=== PATIENT | female | born 1935 | race Caucasian/White ===

== ENCOUNTER → 2016-04-26 | Outpatient (CLI) | payer MEDICARE, BC ==
[~2016-04-26] MED LIST: CALC600T34; CARV12.5; FURO1TAB93; MAGN400T; MONT10TA2; NISO20TA; POTA-267; PRED-1; PROM6.257; RANI150; SUCR1TAB6; TELM1TAB56; Z.0.UNKNOWN
[2016-04-26 13:12] LABS: FREE T4 1.23 NG/DL (0.76-1.46)
== END ==
LOC: PLAB 10:31
PROVIDERS: ATTEND Family Medicine
DX: E03.9 Hypothyroidism, unspecified (principal)
CPT/HCPCS: 36415; 84439; 84443

== ENCOUNTER → 2017-04-10 | Outpatient (CLI) | payer MEDICARE, BC | LOC: HRSP 11:14 | PROVIDERS: ATTEND Specialist | DX: J44.9 Chronic obstructive pulmonary disease, unspecified (principal) | CPT/HCPCS: 94618 ==